=== PATIENT | male | born 1975 | race Caucasian/White ===

== ENCOUNTER 2018-08-26 01:14 | Outpatient (CLI) | payer OTHER, SELFPAY ==
--- NOTE | 2018-08-26 08:00 | DI.CT_ITS ---
SYMPTOM/DIAGNOSIS: LUNG CT SCREENING IN [place] 08/23/17 DUE TO SMOKING 30+, 3MM SOLID NODULE RT LOWER LUNG CT CHEST: CT scan of the chest was performed following the uneventful administration of intravenous contrast material. There are no priors for direct comparison. The visualized thyroid gland is grossly unremarkable. The thoracic aorta is of normal caliber. Heart size is within normal limits. No significant pericardial effusion is present. No significant thoracic adenopathy is appreciated. There is scarring or atelectasis in the right middle lobe There is a 3 mm noncalcified pulmonary nodule in the right lower lobe laterally (Series 4, Image 361). No other pulmonary nodules are seen. The tracheobronchial tree is unremarkable. Upper abdominal images show diffuse fatty infiltration of the liver. Degenerative changes are seen in the spine. IMPRESSION: Solitary 3 mm nodule in the right lower lobe. CT scan of the chest is recommended for follow up in 12 months.
[2018-08-26] MEDS: Omnipaque 350 MG/ML 100 ML BTL IJ (08:36)
== END 2018-08-26 01:34 ==
PROVIDERS: PCP Nurse Practitioner Adult Health; Visit Provider Nurse Practitioner Adult Health
DX: Z12.2 Encounter for screening for malignant neoplasm of respiratory organs (principal); F17.200 Nicotine dependence, unspecified, uncomplicated; R91.1 Solitary pulmonary nodule
CPT/HCPCS: 71260; J3490

== ENCOUNTER 2023-05-18 10:52 | Outpatient (REF) | payer OTHER, SELFPAY | END 2023-05-18 10:53 | disposition home or self-care (01) | LOC: LBN 10:52 | PROVIDERS: PCP Nurse Practitioner Adult Health; Visit Provider Nurse Practitioner Gerontology | DX: R30.0 Dysuria (principal) | CPT/HCPCS: 87086 ==